=== PATIENT | female | born 1950 | race Caucasian/White ===

== ENCOUNTER → 2018-01-05 | Outpatient (CLI) | payer MEDICARE, OTHER ==
[~2018-01-05] MED LIST: ASPIR 8181 MG PO; CLARITIN10 M2 PO; FOLIC ACID1 MG PO; LISINOPRIL20 MG PO; PROTONIX40 M1 PO; TOPROL XL25 MG PO
== END ==
LOC: M.MRI 06:55
DX: Z01.818 Encounter for other preprocedural examination (principal); S83.241A Other tear of medial meniscus, current injury, right knee, initial encounter; M25.461 Effusion, right knee; M17.11 Unilateral primary osteoarthritis, right knee; X58.XXXA Exposure to other specified factors, initial encounter; Y93.89 Activity, other specified; Y92.89 Other specified places as the place of occurrence of the external cause; Y99.8 Other external cause status

== ENCOUNTER 2018-01-30 07:25 | Inpatient (IN) | payer MEDICARE, OTHER ==
[2018-01-11 13:20] LABS: HEMATOCRIT 44.9 % (37.0-47.0); HEMOGLOBIN 15.2 gm/dL (12.0-15.0); MCHC 33.8 g/dL (28.0-37.0); MCV 91.6 fL (80.0-100.0); RBC 4.91 mil/uL (4.20-5.00); RDW-CV 12.3 % (10.5-14.5); WBC 8.1 thou/uL (4.0-11.0)
[2018-01-11 13:28] LABS: INR 1.1; PROTIME 11.2 Seconds (9.20-11.50)
[2018-01-11 13:33] LABS: ALBUMIN 3.3 g/dL (3.4-5.0); CALCIUM 8.9 mg/dL (8.5-10.1); CREATININE 0.8 mg/dL (0.6-1.3); POTASSIUM 3.8 mmol/L (3.5-5.1); TOTAL BILIRUBIN 0.5 mg/dL (<0.1-1.0); TOTAL PROTEIN 6.8 g/dL (6.4-8.2)
[2018-01-11 15:10] LABS: URINE BILIRUBIN NEGATIVE (Negative); URINE BLOOD NEGATIVE (Negative); URINE CLARITY CLEAR; URINE COLOR YELLOW; URINE GLUCOSE-RANDOM NEGATIVE (Negative); URINE KETONES NEGATIVE (Negative); URINE LEUKOCYTES-REFLEX NEGATIVE (Negative); URINE NITRITE-REFLEX NEGATIVE (Negative); URINE PROTEIN NEGATIVE (Negative); URINE UROBILINOGEN 0.2 E.U./dl (0.2-1.0)
[~2018-01-30] VITALS: Ht 167.6 cm; Wt 97.5 kg
--- NOTE | ~2018-01-30 | OP ---
[facility] [address] [place] [address] OPERATIVE REPORT Name: MOISES SLADE Room: [address] IN M.R.#: [id number] Admission: 01/30/18 Attend Phys: Oliver Paulson Discharge: 02/01/18 Date of : 48 Report #: [id number] THIS REPORT FOR: //name// CC: Alfredo Dooley DATE OF SERVICE: 01/30/2018 PREOPERATIVE DIAGNOSIS: Right knee arthritis. POSTOPERATIVE DIAGNOSIS: Right knee arthritis. PROCEDURE: Right total knee arthroplasty. SURGEON: Alfredo Lopez II, DO FIELD SUPPORT ENGINEER: ERICKA Myers ANESTHESIA: Per operative record. ESTIMATED BLOOD LOSS: 50 mL. ANTIBIOTICS: Per operative record. DRAINS: Medium Hemovac. COMPLICATIONS: None. CONDITION OF PATIENT: Stable to recovery room. BRIEF HISTORY: The patient was seen in preop area. Preoperative H and P was performed. Site was marked, questions were answered. Risks and benefits were discussed with the patient in detail about surgery. The patient wished to proceed and assumed all risks. DESCRIPTION OF PROCEDURE: The patient was taken to the operative suite and placed supine on the operating table and given appropriate anesthesia. The patient was well padded. Tourniquet was applied to the upper thigh, which was inflated to 300 mmHg after gravity exsanguination. The operative knee was sterilely prepped and draped. Surgery began by midline incision. This was carried down through subcutaneous tissues. A medial parapatellar arthrotomy was performed and carried down to bone. The patella was then everted and the excess soft tissue removed from around the femur. Femoral cutting block was then applied, checked with a drop justo for rotational alignment, pinned in appropriate position and appropriate cuts were made. A 4-in-[place] [id number] OPERATIVE REPORT Name: MOISES SLADE Room: [address] IN [facility].#: [id number] Admission: 01/30/18 Attend Phys: Oliver Paulson Discharge: 02/01/18 Date of : 48 Report #: [id number] applied, checked for rotational alignment, pinned in appropriate position, appropriate cuts are made. The tibia was then exposed. Excess meniscus was removed. Retractors were placed on collateral ligaments. The tibial cutting block was then applied, pinned in appropriate position, checked with drop justo for rotational alignment and slope and appropriate cut was made. The tibial bone was removed. Tibial baseplate was then applied, checked for rotational alignment with the drop justo in appropriate position. The femur was then applied. A box cut was reamed. This was then trialed with the appropriate spacer, which showed excellent fit and fill and excellent stability of the knee through all range of motion. The patella was then reamed in appropriate fashion and sized to appropriate size. Three peg holes were drilled. It was then trialed and showed excellent flexion and extension, excellent tracking of the patella within the groove. These trials were removed. Tibia was punched in appropriate fashion. Bone ends were cleansed with Pulsavac irrigation and cement was mixed and applied to the final implants. These were then malleted in position and held the knee in extension and compressed to allow the cement to cure. After it cured, excess was removed using [place] and osteotome. The wound was then copiously irrigated and the final spacer was then malleted in position. The tourniquet was deflated. Hemostasis was obtained with electrocautery. Pain cocktail was injected. PRP gel was placed ventral aspects of the knee. A medium Hemovac drain was applied and activated. Capsule was closed with #2 FiberWire and #1 Vicryl in [id number] fashion. Skin was closed with 2-0 Vicryl and running 3-0 Monocryl. Dermabond and sterile dressing applied. Tramaine wrap and PolarCare applied. The patient transported to recovery in stable condition. Counts were correct throughout the procedure. By: [id number] Lopez II, DO /nt
[2018-01-30 07:56] VITALS: BP 115/63
[2018-01-30 12:00] VITALS: BP 106/54; BP 115/63
[2018-01-30 16:49] VITALS: BP 122/50
[2018-01-30 20:10] VITALS: BP 93/49
[2018-01-31] VITALS (9 sets, daily range): BP systolic 70–110; BP diastolic 39–59
[2018-01-31 04:39] LABS: HEMOGLOBIN 12.7 gm/dL (12.0-15.0)
[2018-02-01] VITALS (8 sets, daily range): BP systolic 87–111; BP diastolic 34–57
[2018-02-01 04:22] LABS: HEMOGLOBIN 10.6 gm/dL (12.0-15.0)
[2018-02-01] MEDS ORDERED: XARELTO10 MG PO (08:36)
--- NOTE | 2018-02-01 11:00 | EKG ---
[place] [address] ELECTROCARDIOGRAM REPORT Name: MOISES SLADE Room: [address] ADM IN M.R.#: [id number] Admission: 01/30/18 Attend Phys: Oliver Paulson Discharge: Date of : 48 Report #: [id number] THIS REPORT FOR: //name// [facility] Test Date: 2018-01-31 Test Time: 23:36:40 Pat Name: MOISES SLADE Department: Room: [address] Gender: F Community Organizer: [facility] : 1950 Requested By: Samir Peralta Order Number: [id number] Arya MD: Wilfredo Godinez Measurements Intervals [place] Rate: 98 P: 42 HI: 176 QRS: 35 QRSD: 101 T: 41 QT: 347 QTc: 444 Interpretive Statements Sinus rhythm Borderline low voltage, extremity leads No previous ECG available for comparison Electronically Signed On 02-01-2018 11:00:05 [employer]REL [employer]ER by Wilfredo Godinez [email or web address] <ELECTRONICALLY SIGNED> By: Wilfredo Godinez MD, [facility] 02/01/18 1100 [id number] Wilfredo Godinez MD, FACC /EPI
[2018-02-01] MEDS ORDERED: PERCOCET PO (14:16)
[2018-02-01] MEDS ORDERED: PROTONIX40 M1 PO (14:46)
== END 2018-02-01 15:15 | disposition home health service (06) | DRG 470 ==
LOC: M.PRE → M.TBA 07:25 → M.ORTHSURG 07:25 → M.PRE 07:34 → M.ORTHSURG 11:15 → M.PRE 12:07 → M.ORTHSURG 02-01 15:15
PROVIDERS: Orthopaedic Surgery; ADMIT Internal Medicine
PROC: 0SRC0JZ Replacement of Right Knee Joint with Synthetic Substitute, Open Approach (ICD-10-PCS; principal; 2018-01-30)
DX: M17.11 Unilateral primary osteoarthritis, right knee (principal); I10 Essential (primary) hypertension; Z96.652 Presence of left artificial knee joint; I95.2 Hypotension due to drugs; Z88.8 Allergy status to other drugs, medicaments and biological substances; Z90.710 Acquired absence of both cervix and uterus; Z90.49 Acquired absence of other specified parts of digestive tract; Z79.82 Long term (current) use of aspirin; Z79.899 Other long term (current) drug therapy